=== PATIENT | female | born 1990 | race Caucasian/White ===

== ENCOUNTER 2017-07-04 15:50 | Emergency (ER) | payer BC, OTHER ==
[~2017-07-04] VITALS: Ht 160 cm; Wt 77.6 kg
[~2017-07-04 15:50] MED LIST: Z.0.ADDERALL 20 MG20
[2017-07-04] MEDS ORDERED: ADDERALL 30 MG30 MG ×2 (17:34→17:35)
[2017-07-04 17:48] VITALS: BP 122/74
== END 2017-07-04 16:50 | disposition home or self-care (01) ==
LOC: FSED 15:50
DX: T78.40XA Allergy, unspecified, initial encounter (principal)
CPT/HCPCS: 99281